=== PATIENT | female | born 1970 | race African-American/Black ===

== ENCOUNTER 2017-02-26 13:13 | Inpatient (IN) | payer MEDICARE, MEDICAID ==
[2017-02-26 14:11] LABS: ABSOLUTE BASOPHILS # (AUTO) 0.1 10^3/uL (0.0-0.2); ABSOLUTE EOSINOPHILS # (AUTO) 0.2 10^3/uL (0.0-0.6); ABSOLUTE LYMPHOCYTES (AUTO) 1.6 10^3/uL (0.5-4.7); ABSOLUTE MONOCYTES (AUTO) 0.8 10^3/uL (0.1-1.4); ABSOLUTE NEUT (AUTO) 8.6 10^3/uL (1.7-8.2); BASOPHILS % (AUTO) 0.8 % (0-2); HEMATOCRIT 25.1 % (36.0-47.0); HEMOGLOBIN 8.2 g/dL (12.0-15.5); LYMPHOCYTES % (AUTO) 14.5 % (13-45); MEAN CORPUSCULAR HEMOGLOBIN 30.1 pg (27.0-33.4); MEAN CORPUSCULAR HGB CONC 32.7 g/dL (32.0-36.0); MEAN CORPUSCULAR VOLUME 92 fl (80-97); MONOCYTES % (AUTO) 6.8 % (3-13); PLATELET COUNT 308 10^3/uL (150-450); RED BLOOD COUNT 2.73 10^6/uL (3.72-5.28); RED CELL DISTRIBUTION WIDTH 14.9 % (11.5-14.0); SEGMENTED NEUTROPHILS % (AUTO) 75.9 % (42-78); TOTAL CELLS COUNTED % (AUTO) 100 %; WHITE BLOOD COUNT 11.4 10^3/uL (4.0-10.5)
[2017-02-26 14:15] LABS: ALANINE AMINOTRANSFERASE 28 U/L (9-52); ALBUMIN 3.3 g/dL (3.5-5.0); ALKALINE PHOSPHATASE 97 U/L (38-126); ANION GAP 16 (5-19); ASPARTATE AMINO TRANSFERASE 17 U/L (14-36); BILIRUBIN,DIRECT 0.5 mg/dL (0.0-0.4); BILIRUBIN,TOTAL 0.5 mg/dL (0.2-1.3); BLOOD UREA NITROGEN 75 mg/dL (7-20); CARBON DIOXIDE 18 mmol/L (22-30); CHLORIDE 104 mmol/L (98-107); GLUCOSE 102 mg/dL (75-110); POTASSIUM 5.8 mmol/L (3.6-5.0); SODIUM 138.1 mmol/L (137-145)
[2017-02-26 14:41] LABS: CALCIUM 5.4 mg/dL (8.4-10.2)
[2017-02-26] MEDS ORDERED: CALCIUM GLUCONATE 1000 MG/10 ML INJ IV ONE ×2 (15:07→15:13)
--- NOTE | 2017-02-26 15:19 | ER Document Report ---
ED General - General Chief Complaint: General Weakness Stated Complaint: WEAKNESS Time Seen by Provider: 02/26/17 14:57 Information source: Patient, Relative - Sister who she lives with TRAVEL OUTSIDE OF THE [place] IN LAST 30 DAYS: No - HPI Notes: 46-year-old female with end-stage renal disease on peritoneal dialysis daily presents with decreased sensorium and confusion, increased somnolence the last 3 -4 days. She was seen at [place], had a negative evaluation. She has continued to worsen. She has had similar in the past when she has had a urinary tract infection. Patient wakes up for me and appears coherent enough to tell me that she is not having any discomfort. She has been having some loose stools but no vomiting. Denies any abdominal pain. She reports her peritoneal dialysis fluid has been clear though the sister states last night it seemed to be more cloudy. Denies chest pain. She has had some irregular breathing and has had some twitching but the patient has had no real significant cough. They have noted some increased periorbital edema as well. - Related Data Allergies/Adverse Reactions: Penicillins Allergy (Verified 02/26/17 13:53) Past Medical History - Social History Smoking Status: Never Smoker Frequency of alcohol use: None Drug Abuse: None Family History: Reviewed & Not Pertinent Patient has suicidal ideation: No Patient has homicidal ideation: No - Past Medical History Cardiac Medical History: Reports: Hx Hypertension Renal/ Medical History: Reports: Hx Peritoneal Dialysis - once daily Past Surgical History: Reports: Hx Abdominal Surgery - gastric bypass, Hx Orthopedic Surgery - left BKA 2003, right BKA 2004 - Immunizations Immunizations up to date: Yes Hx Diphtheria, Pertussis, Tetanus Vaccination: No Review of Systems - Review of Systems -: Yes All other systems reviewed and negative - Slightly difficult as patient is somewhat somnolent. Physical Exam - Vital signs Vitals: Pulse Ox 86 L 02/26/17 13:34 Notes: See nurse's notes - Notes Notes: GENERAL: VS as per nursing doc. chronically ill-appearing, morbidly obese, deconditioned and in no acute distress. HEAD: Atraumatic, normocephalic. EYES: Pupils equal round and reactive to light, extraocular movements intact, sclera anicteric, no conjunctival injection or discharge. Mild periorbital edema bilaterally ENT: Nares patent, oropharynx clear without exudates, moist mucous membranes. NECK: No lymphadenopathy. LUNGS: Breath sounds diminished bilaterally with basilar rales HEART: Regular rate and rhythm without murmurs. ABDOMEN: Soft, non-tender, extremely obese. EXTREMITIES: Bilateral BKA is noted NEUROLOGICAL: No obvious hyperreflexia or [place]. Moves all extremities symmetrically. She does have some slight "twitching" intermittently of her upper extremities. PSYCH: Very somnolent, smiling and pleasant, happy. Easily falls back asleep. SKIN: Warm, dry. Course - Re-evaluation Re-evalutation: 02/26/17 20:18 Patient became slightly more unresponsive had initially been responsive to verbal stimuli still was responsive to verbal stimuli but was more somnolent. ABG showed a pH of 7.18 patient will be put on a BiPAP and ABG will be redrawn. ABG was consistent with a mixed metabolic and respiratory acidosis. Unclear but with the history of the recent possible cloudy fluid last night, even though the patient did not have obvious abdominal pain, infection and be a consideration. I spoke with Dr. Braga and he is told me to use 2.5 L of 2.5% dialysate. As well give 2 g of vancomycin and 150 mg and gentamicin as coverage until we get the fluid culture and Gram stain results. 02/26/17 20:[address] Galeas and she will admit the patient. - Vital Signs Vital signs: Temp Pulse Resp BP Pulse Ox 11 L 142/68 H 99 02/26/17 19:00 02/26/17 18:01 02/26/17 19:00 - Laboratory Result Diagrams: 02/26/17 13:35 02/26/17 13:35 Laboratory results interpreted by me: 02/26/17 02/26/17 02/26/17 13:35 13:35 13:35 WBC 11.4 H RBC 2.73 L Hgb 8.2 L Hct 25.1 L RDW 14.9 H Absolute Neutrophils 8.6 H Carbonic Acid ABG pH ABG pCO2 ABG HCO3 ABG Total CO2 Potassium 5.8 H Carbon Dioxide 18 L BUN 75 H Creatinine 16.75 H Est GFR ( Amer) 3 L Est GFR (Non-Af Amer) 2 L Calcium 5.4 L* Ionized Calcium Oksana Phosphorus 10.4 H Direct Bilirubin 0.5 H Albumin 3.3 L Urine Protein Urine Glucose (UA) Urine Blood 02/26/17 02/26/17 02/26/17 15:55 18:00 18:56 WBC RBC Hgb Hct RDW Absolute Neutrophils Carbonic Acid 1.54 H ABG pH 7.18 L* ABG pCO2 51.3 H ABG HCO3 18.7 L ABG Total CO2 20.3 L Potassium Carbon Dioxide BUN Creatinine Est GFR ( Amer) Est GFR (Non-Af Amer) Calcium Ionized Calcium Oksana 0.81 L Phosphorus Direct Bilirubin Albumin Urine Protein 100 H Urine Glucose (UA) 50 H Urine Blood MODERATE H - Diagnostic Test Radiology reviewed: Image reviewed - Cardiomegaly, no acute obvious pulmonary edema - EKG Interpretation by Nm EKG shows normal: Sinus rhythm - Rate 95, left anterior fascicular block, slight peaking of the T waves, nonspecific ST abnormalities - Consults Dr. Galeas Time consulted: 20:30 Consulted provider: will come to ER Critical Care Note - Critical Care Note Total time excluding time spent on procedures (mins): 40 Discharge - Discharge Clinical Impression: Acute respiratory failure, Hypocalcemia Condition: Critical Disposition: ADMITTED INPATIENT Admitting Provider: Dr. Galeas Unit Admitted: ICU Referrals: ALEM UGARTE DO [Primary Care Provider] - Follow up as needed
[2017-02-26 15:38] LABS: PHOSPHORUS 10.4 mg/dL (2.5-4.5)
--- NOTE | 2017-02-26 15:52 | RADIOLOGY REPORT (SQ) ---
EXAM DESCRIPTION: CHEST SINGLE VIEW COMPLETED DATE/TIME: 02/26/2017 3:39 pm REASON FOR STUDY: AMS/Cough COMPARISON: 10/20/2007 NUMBER OF VIEWS: One view. TECHNIQUE: Single frontal radiographic view of the chest acquired. LIMITATIONS: None. FINDINGS: LUNGS AND PLEURA: No opacities, masses or pneumothorax. No pleural effusion. MEDIASTINUM AND HILAR STRUCTURES: No masses. Contour normal. HEART AND VASCULAR STRUCTURES: Heart enlarged without failure. Normal vasculature. BONES: No acute findings. HARDWARE: None in the chest. OTHER: No other significant finding. IMPRESSION: HEART ENLARGED WITHOUT FAILURE. NO OTHER SIGNIFICANT RADIOGRAPHIC FINDING IN THE CHEST. TECHNICAL DOCUMENTATION: JOB ID: [id number] [employer]- All Rights Reserved
[2017-02-26 16:37] LABS: AMORPHOUS SEDIMENT,URINE TRACE /HPF; APPEARANCE,URINE SLIGHTLY-CLOUDY; BILIRUBIN,URINE NEGATIVE (NEGATIVE); COLOR,URINE YELLOW; GLUCOSE, URINE 50 mg/dL (NEGATIVE); KETONES,URINE NEGATIVE (NEGATIVE); LEUKOCYTE ESTERASE,URINE NEGATIVE (NEGATIVE); NITRITE,URINE NEGATIVE (NEGATIVE); PROTEIN,URINE 100 mg/dL (NEGATIVE); URINE SPECIFIC GRAVITY 1.013; UROBILINOGEN,URINE NEGATIVE mg/dL (<2.0)
[2017-02-26 19:21] LABS: ARTERIAL BLOOD H2CO3 1.54 mmol/L (1.05-1.35); ARTERIAL BLOOD HCO3 18.7 mmol/L (20-26); ARTERIAL BLOOD O2 SATURATION 95.1 % (94-98); ARTERIAL BLOOD PCO2 51.3 mmHg (35-45); ARTERIAL BLOOD PO2 93.5 mmHg (80-100); ARTERIAL BLOOD TOTAL CO2 20.3 mmol/L (21-25)
[2017-02-26 19:30] LABS: ARTERIAL BLOOD FIO2 3L
[2017-02-26 19:35] LABS: ARTERIAL BLOOD PH 7.18 (7.35-7.45)
[2017-02-26] MEDS ORDERED: VANCOMYCIN HCL INJ 1000 MG VIAL IV ONE (20:15)
[2017-02-26] MEDS ORDERED: GENTAMICIN SULFATE INJ 80 MG/2 ML VIAL IV ONE (20:15)
[2017-02-26] MEDS ORDERED: ACETAMINOPHEN 325 MG TABLET PO PRN (20:48)
[2017-02-26] MEDS ORDERED: PROMETHAZINE HCL 25 MG TABLET PO PRN (20:48)
[2017-02-26 21:38] LABS: ARTERIAL BLOOD BASE EXCESS -8.9 mmol/L; ARTERIAL BLOOD H2CO3 1.53 mmol/L (1.05-1.35); ARTERIAL BLOOD HCO3 18.9 mmol/L (20-26); ARTERIAL BLOOD O2 SATURATION 77.9 % (94-98); ARTERIAL BLOOD PCO2 50.8 mmHg (35-45); ARTERIAL BLOOD PO2 51.9 mmHg (80-100); ARTERIAL BLOOD TOTAL CO2 20.5 mmol/L (21-25)
[2017-02-26 21:41] LABS: ARTERIAL BLOOD FIO2 50%
[2017-02-26 21:44] LABS: ARTERIAL BLOOD PH 7.19 (7.35-7.45)
[2017-02-26 21:51] LABS: FLUID APPEARANCE SLIGHTLY HAZY; FLUID COLOR YELLOW; FLUID TYPE PERITONEAL; FLUID VISCOSITY LIQUID
[2017-02-26] MEDS ORDERED: CARVEDILOL 12.5 MG TABLET PO SCH (22:00)
[2017-02-26 22:10] LABS: FLUID SOURCE ABDOMEN
[2017-02-26] MEDS: HEPARIN SOD (PORCINE) 5,000 UNIT/ML 1 ML SYRINGE SUBCUT SCH (22:32)
--- NOTE | 2017-02-26 22:50 | EKG REPORT ---
SEVERITY:- ABNORMAL ECG - SINUS RHYTHM LEFT ANTERIOR FASCICULAR BLOCK LOW VOLTAGE IN FRONTAL LEADS BORDERLINE R WAVE PROGRESSION, ANTERIOR LEADS, CANNOT R/O ANTERIOR DE OLD : Confirmed by: Kamini Barnard 26-Feb-2017 22:49:51
[2017-02-26 23:48] LABS: ARTERIAL BLOOD BASE EXCESS -10.2 mmol/L; ARTERIAL BLOOD H2CO3 1.48 mmol/L (1.05-1.35); ARTERIAL BLOOD HCO3 17.9 mmol/L (20-26); ARTERIAL BLOOD O2 SATURATION 99.2 % (94-98); ARTERIAL BLOOD PCO2 49.1 mmHg (35-45); ARTERIAL BLOOD PO2 221.9 mmHg (80-100); ARTERIAL BLOOD TOTAL CO2 19.4 mmol/L (21-25)
[2017-02-26 23:49] LABS: ARTERIAL BLOOD FIO2 50%; ARTERIAL BLOOD PH 7.18 (7.35-7.45)
[2017-02-27] MEDS ORDERED: SODIUM BICARBONATE 8.4% INJ 50 MEQ/50 ML DISP.SYRIN IV ONE (00:17)
--- NOTE | 2017-02-27 01:21 | PDOC H&P ---
History of Present Illness Admission Date/PCP: 02/26/17 20:42 ALEM UGARTE DO History of Present Illness: NAA WALKER is a 46 year old female with past medical history of end-stage renal disease, hypertension, diabetes mellitus, peripheral vascular disease who presented to the emergency department with complaints of weakness. History is primarily obtained from her sister who is at bedside as patient is quite lethargic. She reports that she took her sister to [place] emergency department on Saturday for increased sleepiness and weakness, but they were unable to find anything wrong with her. She reports that she has been increasingly somnolent over the last 3 or 4 days. She does report that she saw her primary care physician earlier this week but is unsure if any of her medications have changed. She does report that she has had some loose stools this week and was unable to get to the bathroom in time. Sister reports that her peritoneal dialysis fluid has been cloudy and the patient was noted to have a fever by EMS of approximately 99F. She also reports that there are plans to transition her sister from peritoneal dialysis to hemodialysis. She reports that in the 6 months that she has been on peritoneal dialysis, that she has had increased edema. Patient is referred to the hospitalist service for find respiratory and metabolic acidosis and acute encephalopathy with concerns for bacterial peritonitis. Past Medical History Cardiac Medical History: Reports: Hypertension Endocrine Medical History: Reports: Diabetes Mellitus Type 2, Obesity Renal/ Medical History: Reports: End Stage Renal Disease Past Surgical History Past Surgical History: Reports: Amputation - Bilateral BKA, Gastric Bypass Surgery, Orthopedic Surgery - left BKA 2003, right BKA 2004, Other - abdominoplasty Social History Smoking Status: Never Smoker Frequency of Alcohol Use: None Hx Recreational Drug Use: No Hx Prescription Drug Abuse: No - Advance Directive Resuscitation Status: Full Code Surrogate healthcare decision maker:: Jenniffer Nattyerin, sister Family History Family History: DM, Hypertension Parental Family History Reviewed: Yes Children Family History Reviewed: NA Sibling(s) Family History Reviewed.: Yes Medication/Allergy Allergies/Adverse Reactions: Penicillins Allergy (Verified 02/26/17 13:53) Review of Systems ROS unobtainable: Due to mental status Constitutional: PRESENT: as per HPI Cardiovascular: PRESENT: as per HPI Gastrointestinal: PRESENT: as per HPI Physical Exam Vital Signs: Temp Pulse Resp BP Pulse Ox 16 178/81 H 100 02/27/17 00:00 02/26/17 23:01 02/27/17 00:50 Intake & Output 02/25/17 02/26/17 02/27/17 06:59 06:59 06:59 Intake Total 5000 Balance 5000 Weight 221.849 kg General appearance: PRESENT: no acute distress, morbidly obese, well-developed, well-nourished Head exam: PRESENT: atraumatic, normocephalic Eye exam: PRESENT: conjunctiva pink, EOMI, periorbital swelling, PERRLA. ABSENT : conjunctival injection, scleral icterus Ear exam: PRESENT: normal external ear exam Mouth exam: PRESENT: moist, tongue midline Neck exam: PRESENT: JVD. ABSENT: carotid bruit, lymphadenopathy, thyromegaly, tracheal deviation Respiratory exam: PRESENT: rales, unlabored. ABSENT: accessory muscle use, rhonchi, tachypnea, wheezes Cardiovascular exam: PRESENT: RRR, +S1, +S2, systolic murmur. ABSENT: diastolic murmur, rubs Pulses: PRESENT: normal dorsalis pedis pul Vascular exam: PRESENT: normal capillary refill GI/Abdominal exam: PRESENT: normal bowel sounds, soft. ABSENT: distended, firm , guarding, mass, Jimenez's sign, organolmegaly, rebound, rigid, tenderness Rectal exam: PRESENT: deferred Extremities exam: PRESENT: full ROM, +2 edema - Stump edema. ABSENT: clubbing Neurological exam: PRESENT: altered - Lethargic but appropriate when aroused, oriented to person, oriented to place, oriented to time, oriented to situation, CN II-XII grossly intact. ABSENT: motor sensory deficit Psychiatric exam: PRESENT: flat affect. ABSENT: homicidal ideation, suicidal ideation Skin exam: PRESENT: dry, intact, warm. ABSENT: cyanosis, rash Results Laboratory Results: 02/26/17 02/26/17 02/26/17 21:15 21:31 22:35 Carbonic Acid 1.53 H 1.48 H HCO3/H2CO3 Ratio 12:1 12:1 ABG pH 7.19 L* 7.18 L* ABG pCO2 50.8 H 49.1 H ABG pO2 51.9 L 221.9 H ABG HCO3 18.9 L 17.9 L ABG O2 Saturation 77.9 L 99.2 H ABG Base Excess -8.9 -10.2 FiO2 50% 50% Fluid Type PERITONEAL Fluid Source ABDOMEN Fluid Color YELLOW Fluid Appearance SLIGHTLY HAZY Fluid Viscosity LIQUID Fluid WBC 24 Fluid RBC 24 02/26/17 02/26/17 02/26/17 13:35 13:35 13:35 WBC 11.4 H Hgb 8.2 L Hct 25.1 L Sodium 138.1 Potassium 5.8 H Chloride 104 Carbon Dioxide 18 L Anion Gap 16 BUN 75 H Creatinine 16.75 H Glucose 102 Calcium 5.4 L* Ionized Calcium Oksana Phosphorus 10.4 H Magnesium 2.0 Total Bilirubin 0.5 Direct Bilirubin 0.5 H AST 17 ALT 28 Alkaline Phosphatase 97 Total Protein 7.0 Albumin 3.3 L TSH Urine Blood Urine WBC (Auto) Urine RBC (Auto) Urine Bacteria (Auto) Amorphous Sediment Auto Fluid WBC Fluid RBC Fluid Seg Neutrophils 02/26/17 02/26/17 02/26/17 13:35 15:55 18:00 WBC Hgb Hct Sodium Potassium Chloride Carbon Dioxide Anion Gap BUN Creatinine Glucose Calcium Ionized Calcium Oksana 0.81 L Phosphorus Magnesium Total Bilirubin Direct Bilirubin AST ALT Alkaline Phosphatase Total Protein Albumin TSH 1.02 Urine Blood MODERATE H Urine WBC (Auto) 4 Urine RBC (Auto) 18 Urine Bacteria (Auto) TRACE Amorphous Sediment Auto TRACE Fluid WBC Fluid RBC Fluid Seg Neutrophils 02/26/17 21:15 WBC Hgb Hct Sodium Potassium Chloride Carbon Dioxide Anion Gap BUN Creatinine Glucose Calcium Ionized Calcium Oksana Phosphorus Magnesium Total Bilirubin Direct Bilirubin AST ALT Alkaline Phosphatase Total Protein Albumin TSH Urine Blood Urine WBC (Auto) Urine RBC (Auto) Urine Bacteria (Auto) Amorphous Sediment Auto Fluid WBC 24 Fluid RBC 24 Fluid Seg Neutrophils 15 Impressions: Chest X-Ray 02/26/17 15:08 IMPRESSION: HEART ENLARGED WITHOUT FAILURE. NO OTHER SIGNIFICANT RADIOGRAPHIC FINDING IN THE CHEST. Status: Imported from PACS Assessment & Plan - Diagnosis (1) Peritonitis due to infected peritoneal dialysis catheter Qualifiers: Encounter type: initial encounter Qualified Code(s): T85.71XA - Infection and inflammatory reaction due to peritoneal dialysis catheter, initial encounter ; K65.9 - Peritonitis, unspecified; K65.9 - Peritonitis, unspecified; K65.9 - Peritonitis, unspecified Is this a current diagnosis for this admission?: Yes Plan: Concern for infected peritoneal dialysis catheter. Sister reports that she was given an antibiotic to put in her dialysis catheter. Patient's fluid appears cloudy, and has been given gentamicin and vancomycin per the instruction of nephrology. Will add cefepime to this for gram-negative coverage. Concern is also given for possible other occult infection including UTI. Defer further dosing of vancomycin and gentamicin to the nephrology team. (2) End stage renal disease on dialysis Is this a current diagnosis for this admission?: Yes Plan: Apparently, patient is in the process of being transitioned from PD to HD. Patient has a functional left upper extremity fistula with palpable thrill and bruit. Patient will likely need hemodialysis for correction of her high anion gap metabolic acidosis. (3) High anion gap metabolic acidosis Is this a current diagnosis for this admission?: Yes Plan: Patient likely has a high anion gap metabolic acidosis due to her underlying uremia. Believe patient likely needs hemodialysis.. Will give sodium bicarbonate and monitor patient for tetany and transient worsening of her hypocalcemia. Continue to monitor patient on telemetry for arrhythmia. (4) Respiratory acidosis Is this a current diagnosis for this admission?: Yes Plan: Patient likely has an ongoing acute respiratory acidosis due to her underlying obesity hypoventilation syndrome. We will continue to follow this. (5) Diarrhea Qualifiers: Diarrhea type: unspecified type Qualified Code(s): R19.7 - Diarrhea, unspecified Is this a current diagnosis for this admission?: Yes Plan: Will check stool for occult blood, C. difficile, fecal leukocytes, and culture. She is yet to have a stool here (6) Hyperkalemia Is this a current diagnosis for this admission?: Yes Plan: We will recheck and monitor for arrhythmia (7) Anemia in chronic kidney disease, on chronic dialysis Is this a current diagnosis for this admission?: Yes Plan: Defer to nephrology for Epogen (8) Acute respiratory failure Qualifiers: Respiratory failure complication: hypoxia and hypercapnia Qualified Code(s) : J96.01 - Acute respiratory failure with hypoxia; J96.02 - Acute respiratory failure with hypercapnia; J96.02 - Acute respiratory failure with hypercapnia; J96.02 - Acute respiratory failure with hypercapnia Is this a current diagnosis for this admission?: Yes Plan: Element of both hypercapnic and hypoxic respiratory failure secondary to underlying obesity hypoventilation, and volume overload. (9) Hypocalcemia Is this a current diagnosis for this admission?: Yes Plan: Has been given 2 g of IV calcium. Place on Tums and repeat. Likely secondary to secondary hyperparathyroidism due to her underlying renal disease (10) Acute metabolic encephalopathy Is this a current diagnosis for this admission?: Yes Plan: Likely secondary to underlying uremia and possibly also infection. Supportive care (11) Morbid obesity with BMI of 50.0-59.9, adult Is this a current diagnosis for this admission?: Yes Plan: No current height is listed and patient is 221 kg suspecting her BMI is likely higher than this. (12) History of gastric bypass Is this a current diagnosis for this admission?: Yes (13) Obesity hypoventilation syndrome Is this a current diagnosis for this admission?: Yes Plan: Have placed patient on BiPAP at 22/6 - Time Time Spent: Greater than 70 Minutes Medications reviewed and adjusted accordingly: Yes - Inpatient Certification Based on my medical assessment, after consideration of the patient's comorbidities, presenting symptoms, or acuity I expect that the services needed warrant INPATIENT care.: Yes I certify that my determination is in accordance with my understanding of Medicare's requirements for reasonable and necessary INPATIENT services [42 CFR 412.3e].: Yes Medical Necessity: Need For Continuous Telemetry Monitoring, Risk of Complication if Not Cared For in Hospital, Risk of Diagnosis Which Will Require Inpatient Eval/Care/Monitoring Post Hospital Care: D/C Machine Buffer Documentation
[2017-02-27] MEDS ORDERED: PHARMACY COMMUNICATION ORDER MC NR ×2 (01:30→15:15)
[2017-02-27 03:30] LABS: ARTERIAL BLOOD BASE EXCESS -7.5 mmol/L; ARTERIAL BLOOD H2CO3 1.52 mmol/L (1.05-1.35); ARTERIAL BLOOD O2 SATURATION 98.2 % (94-98); ARTERIAL BLOOD PCO2 50.4 mmHg (35-45); ARTERIAL BLOOD PH 7.22 (7.35-7.45); ARTERIAL BLOOD PO2 139.5 mmHg (80-100); ARTERIAL BLOOD TOTAL CO2 21.6 mmol/L (21-25)
[2017-02-27 03:31] LABS: ARTERIAL BLOOD FIO2 35%
[2017-02-27 05:01] LABS: ABSOLUTE BASOPHILS # (AUTO) 0.1 10^3/uL (0.0-0.2); ABSOLUTE EOSINOPHILS # (AUTO) 0.2 10^3/uL (0.0-0.6); ABSOLUTE MONOCYTES (AUTO) 0.8 10^3/uL (0.1-1.4); ABSOLUTE NEUT (AUTO) 6.8 10^3/uL (1.7-8.2); BASOPHILS % (AUTO) 0.7 % (0-2); HEMATOCRIT 23.6 % (36.0-47.0); LYMPHOCYTES % (AUTO) 11.7 % (13-45); MEAN CORPUSCULAR HEMOGLOBIN 29.7 pg (27.0-33.4); MEAN CORPUSCULAR HGB CONC 32.3 g/dL (32.0-36.0); MEAN CORPUSCULAR VOLUME 92 fl (80-97); MONOCYTES % (AUTO) 9.2 % (3-13); PLATELET COUNT 252 10^3/uL (150-450); RED BLOOD COUNT 2.56 10^6/uL (3.72-5.28); RED CELL DISTRIBUTION WIDTH 14.3 % (11.5-14.0); SEGMENTED NEUTROPHILS % (AUTO) 76.4 % (42-78); TOTAL CELLS COUNTED % (AUTO) 100 %; WHITE BLOOD COUNT 8.9 10^3/uL (4.0-10.5)
[2017-02-27 05:05] LABS: HEMOGLOBIN 7.6 g/dL (12.0-15.5)
[2017-02-27 05:29] LABS: ALANINE AMINOTRANSFERASE 29 U/L (9-52); ALBUMIN 2.8 g/dL (3.5-5.0); ALKALINE PHOSPHATASE 91 U/L (38-126); ANION GAP 17 (5-19); ASPARTATE AMINO TRANSFERASE 12 U/L (14-36); BILIRUBIN,DIRECT 0.3 mg/dL (0.0-0.4); BILIRUBIN,TOTAL 0.4 mg/dL (0.2-1.3); BLOOD UREA NITROGEN 72 mg/dL (7-20); CARBON DIOXIDE 18 mmol/L (22-30); CHLORIDE 105 mmol/L (98-107); GLUCOSE 108 mg/dL (75-110); PHOSPHORUS 10.7 mg/dL (2.5-4.5); POTASSIUM 5.8 mmol/L (3.6-5.0); SODIUM 139.9 mmol/L (137-145); TOTAL PROTEIN 5.8 g/dL (6.3-8.2)
[2017-02-27 05:53] LABS: CALCIUM 5.8 mg/dL (8.4-10.2)
[2017-02-27] MEDS ORDERED: CALCIUM GLUCONATE 1000 MG/10 ML INJ IV ONE ×2 (06:00→15:30)
[2017-02-27] MEDS ORDERED: CALCIUM GLUCONATE 1000 MG/10 ML INJ IV PRN (06:22)
[2017-02-27] MEDS ORDERED: CALCIUM GLUCONATE 2,000 MG in DEXTROSE 5%-WATER 100 ML IV ONE (06:30)
[2017-02-27] MEDS: HEPARIN SOD (PORCINE) 5,000 UNIT/ML 1 ML SYRINGE SUBCUT SCH (06:44)
[2017-02-27 07:15] LABS: ARTERIAL BLOOD BASE EXCESS -8.4 mmol/L; ARTERIAL BLOOD H2CO3 1.63 mmol/L (1.05-1.35); ARTERIAL BLOOD HCO3 19.9 mmol/L (20-26); ARTERIAL BLOOD PCO2 54.3 mmHg (35-45); ARTERIAL BLOOD PO2 77.7 mmHg (80-100); ARTERIAL BLOOD TOTAL CO2 21.6 mmol/L (21-25)
[2017-02-27 07:16] LABS: ARTERIAL BLOOD FIO2 24%
[2017-02-27 07:18] LABS: ARTERIAL BLOOD PH 7.18 (7.35-7.45)
[2017-02-27] MEDS ORDERED: SUCCINYLCHOLINE CHLORIDE INJ 200 MG/10 ML VIAL ONE (07:57)
[2017-02-27] MEDS ORDERED: CEFEPIME 1 GM/D5W RTU 1 GM/50 ML RTUPB IV SCH (10:00)
[2017-02-27] MEDS ORDERED: AMLODIPINE BESYLATE 10 MG TABLET PO SCH (10:00)
--- NOTE | 2017-02-27 11:15 | PDOC CONSULTATION ---
Consultation Consult Date: 02/27/17 Consult reason:: ESRD on peritoneal dialysis History of Present Illness Admission Date/PCP: 02/26/17 20:42 ALEM UGARTE DO History of Present Illness: NAA WALKER is a 46 year old morbidly obese female with past medical history of end-stage renal disease on peritoneal dialysis, hypertension, diabetes mellitus, peripheral vascular disease who presented to the emergency department with complaints of weakness. The patient is quite lethargic and unable to contribute to a proper history. Besides that she is also on BiPAP. Therefore chart review was done and discussions were done with the treating nurse. She was initially taken to to [place] emergency department on Saturday for increased sleepiness and weakness, but they were unable to find anything wrong with her. Apparently she had been increasingly somnolent over the last 3 or [address] Galeas states that she saw her primary care physician earlier this week but is unsure if any of her medications have changed. There is a history that she has had some loose stools this week and was unable to get to the bathroom in time. Sister reports that her peritoneal dialysis fluid has been cloudy and the patient was noted to have a fever by EMS of approximately 99 F. She also reports that there are plans to transition her sister from peritoneal dialysis to hemodialysis. She reports that in the 6 months that she has been on peritoneal dialysis, that she has had increased edema. Evaluations in the ER and discussions done with the ER physician yesterday and the fluid was sent for rapid studies and have come back showing no features indicative of bacterial peritonitis. Has had couple of rapid exchanges and she is now on q. 4 hour exchanges to treat her electrolyte abnormalities. Patient when seen this morning was quite lethargic and unable to contribute any to the history. Past Medical History Cardiac Medical History: Reports: Hypertension-primary Endocrine Medical History: Reports: Diabetes Mellitus Type 2, Obesity Renal/ Medical History: Reports: End Stage Renal Disease, Secondary Hyperparathyroidism Hematology Medical History: Reports Anemia of Chronic Kidney Disease Past Surgical History Past Surgical History: Reports: Gastric Bypass Surgery, Orthopedic Surgery - left BKA 2003, right BKA 2004, Other - abdominoplasty Social History Smoking Status: Never Smoker Frequency of Alcohol Use: None Hx Recreational Drug Use: No Hx Prescription Drug Abuse: No - Advance Directive Resuscitation Status: Full Code Family History Parental Family History Reviewed: No Children Family History Reviewed: No Sibling(s) Family History Reviewed.: No Medication/Allergy Allergies/Adverse Reactions: Penicillins Allergy (Verified 02/26/17 13:53) Review of Systems ROS unobtainable: Due to mental status - Chart review was done and discussions were done with the treating nurse. Physical Exam Vital Signs: Temp Pulse Resp BP Pulse Ox 98.2 F 71 17 156/73 H 96 02/27/17 07:41 02/27/17 09:15 02/27/17 09:50 02/27/17 09:15 02/27/17 07:41 Intake & Output 02/26/17 02/27/17 02/28/17 06:59 06:59 06:59 Intake Total 7500 2500 Output Total 1300 Balance 6200 2500 Weight 220.7 kg 220.7 kg General appearance: PRESENT: mild distress, morbidly obese - On BiPAP and lethargic. Eye exam: PRESENT: EOMI, PERRLA Mouth exam: PRESENT: neck supple Neck exam: ABSENT: lymphadenopathy, meningismus, tenderness, thyromegaly, tracheal deviation Respiratory exam: PRESENT: clear to auscultation senthil, crackles - Scattered., symmetrical. ABSENT: rhonchi Cardiovascular exam: PRESENT: +S1, +S2 GI/Abdominal exam: PRESENT: normal bowel sounds, soft, tenderness. ABSENT: ascites - Quite pendulous, organomegaly Extremities exam: PRESENT: +1 edema Neurological exam: PRESENT: altered Skin exam: ABSENT: dry, rash - Tinea cruris in the groin region Results Laboratory Results: 02/27/17 04:46 02/27/17 04:46 02/26/17 02/26/17 02/26/17 21:15 21:31 22:35 WBC RBC Hgb Hct MCV MCH MCHC RDW Plt Count Seg Neutrophils % Lymphocytes % Monocytes % Eosinophils % Basophils % Absolute Neutrophils Absolute Lymphocytes Absolute Monocytes Absolute Eosinophils Absolute Basophils Carbonic Acid 1.53 H 1.48 H HCO3/H2CO3 Ratio 12:1 12:1 ABG pH 7.19 L* 7.18 L* ABG pCO2 50.8 H 49.1 H ABG pO2 51.9 L 221.9 H ABG HCO3 18.9 L 17.9 L ABG O2 Saturation 77.9 L 99.2 H ABG Base Excess -8.9 -10.2 FiO2 50% 50% Sodium Potassium Chloride Carbon Dioxide Anion Gap BUN Creatinine Est GFR ( Amer) Est GFR (Non-Af Amer) Glucose Calcium Ionized Calcium [place] Phosphorus Magnesium Total Bilirubin AST ALT Alkaline Phosphatase Total Protein Albumin Fluid Type PERITONEAL Fluid Source ABDOMEN Fluid Color YELLOW Fluid Appearance SLIGHTLY HAZY Fluid Viscosity LIQUID Fluid WBC 24 Fluid RBC 24 Blood Type Antibody Screen 02/27/17 02/27/17 02/27/17 03:22 04:46 04:46 WBC 8.9 RBC 2.56 L Hgb 7.6 L Hct 23.6 L MCV 92 MCH 29.7 MCHC 32.3 RDW 14.3 H Plt Count 252 Seg Neutrophils % 76.4 Lymphocytes % 11.7 L Monocytes % 9.2 Eosinophils % 2.0 Basophils % 0.7 Absolute Neutrophils 6.8 Absolute Lymphocytes 1.0 Absolute Monocytes 0.8 Absolute Eosinophils 0.2 Absolute Basophils 0.1 Carbonic Acid 1.52 H HCO3/H2CO3 Ratio 13:1 ABG pH 7.22 L ABG pCO2 50.4 H ABG pO2 139.5 H ABG HCO3 20.0 ABG O2 Saturation 98.2 H ABG Base Excess -7.5 FiO2 35% Sodium 139.9 Potassium 5.8 H Chloride 105 Carbon Dioxide 18 L Anion Gap 17 BUN 72 H Creatinine 17.21 H Est GFR ( Amer) 3 L Est GFR (Non-Af Amer) 2 L Glucose 108 Calcium 5.8 L* Ionized Calcium Oks[place] Phosphorus 10.7 H Magnesium 2.0 Total Bilirubin 0.4 AST 12 L ALT 29 Alkaline Phosphatase 91 Total Protein 5.8 L Albumin 2.8 L Fluid Type Fluid Source Fluid Color Fluid Appearance Fluid Viscosity Fluid WBC Fluid RBC Blood Type Antibody Screen 02/27/17 02/27/17 02/27/17 05:41 06:41 06:47 WBC RBC Hgb Hct MCV MCH MCHC RDW Plt Count Seg Neutrophils % Lymphocytes % Monocytes % Eosinophils % Basophils % Absolute Neutrophils Absolute Lymphocytes Absolute Monocytes Absolute Eosinophils Absolute Basophils Carbonic Acid 1.63 H HCO3/H2CO3 Ratio 12:1 ABG pH 7.18 L* ABG pCO2 54.3 H ABG pO2 77.7 L ABG HCO3 19.9 L ABG O2 Saturation 92.0 L ABG Base Excess -8.4 FiO2 24% Sodium Potassium Chloride Carbon Dioxide Anion Gap BUN Creatinine Est GFR ( Amer) Est GFR (Non-Af Amer) Glucose Calcium Ionized Calcium Oksana 0.81 L Phosphorus Magnesium Total Bilirubin AST ALT Alkaline Phosphatase Total Protein Albumin Fluid Type Fluid Source Fluid Color Fluid Appearance Fluid Viscosity Fluid WBC Fluid RBC Blood Type B POSITIVE Antibody Screen NEGATIVE Impressions: Chest X-Ray 02/26/17 15:08 IMPRESSION: HEART ENLARGED WITHOUT FAILURE. NO OTHER SIGNIFICANT RADIOGRAPHIC FINDING IN THE CHEST. Assessment & Plan - Diagnosis (1) Acute metabolic encephalopathy Is this a current diagnosis for this admission?: Yes Plan: Patient has respiratory and metabolic acidosis from obesity induced chronic hypoventilation/ESRD and possible poor compliance with peritoneal dialysis respectively. Patient currently on BiPAP which hopefully might improve her respiratory status. Will do vigorous peritoneal dialysis and see if she would correct her electrolyte abnormalities. If that does not work then we will convert her to hemodialysis. (2) Acute respiratory failure Qualifiers: Respiratory failure complication: hypoxia and hypercapnia Qualified Code(s) : J96.01 - Acute respiratory failure with hypoxia; J96.02 - Acute respiratory failure with hypercapnia; J96.02 - Acute respiratory failure with hypercapnia; J96.02 - Acute respiratory failure with hypercapnia Is this a current diagnosis for this admission?: Yes Plan: As outlined earlier. See if she responds to measures outlined earlier. Need to rule out other causes of metabolic encephalopathy. Also ordered ammonia levels. No signs of infection but cultures are pending. (3) Anemia in chronic kidney disease, on chronic dialysis Is this a current diagnosis for this admission?: Yes Plan: Get iron studies and based on that will latest start on erythropoietin (4) Diarrhea Qualifiers: Diarrhea type: unspecified type Qualified Code(s): R19.7 - Diarrhea, unspecified Is this a current diagnosis for this admission?: Yes Plan: As per hospitalist (5) End stage renal disease on dialysis Is this a current diagnosis for this admission?: Yes Plan: Patient has been given peritoneal dialysis exchanges 3 since admission early this morning. Orders were discussed with the treating nurse. No evidences to indicate bacterial peritonitis which is a relief. Monitor electrolytes and see if she needs to be converted to hemodialysis through a catheter. (6) History of gastric bypass Is this a current diagnosis for this admission?: Yes Plan: Be a cause for multiple elemental deficiencies. Would check B12 levels. (7) Hyperkalemia Is this a current diagnosis for this admission?: Yes Plan: See response to rapid peritoneal dialysis and see if needs to be converted to hemodialysis later on tomorrow. (8) Hypocalcemia Is this a current diagnosis for this admission?: Yes Plan: Combination of factors including secondary hyperparathyroidism and high phosphorus. Check appropriate labs. (9) Morbid obesity with BMI of 50.0-59.9, adult Is this a current diagnosis for this admission?: Yes (10) Renal osteodystrophy Plan: Start binders when she is taking her meals.
[2017-02-27 11:59] LABS: ANION GAP 18 (5-19); BLOOD UREA NITROGEN 72 mg/dL (7-20); CARBON DIOXIDE 18 mmol/L (22-30); CHLORIDE 103 mmol/L (98-107); GLUCOSE 110 mg/dL (75-110); POTASSIUM 5.8 mmol/L (3.6-5.0); SODIUM 138.6 mmol/L (137-145)
[2017-02-27 12:25] LABS: CALCIUM 6.4 mg/dL (8.4-10.2)
[2017-02-27 12:54] LABS: ALBUMIN 3.3 g/dL (3.5-5.0)
--- NOTE | 2017-02-27 13:54 | Physician Advisory Note ---
Physician Advisor ProgressNote .: Pursuant to the plan for [facility], I have reviewed the medical record for this patient. Physician Advisor Statement: Very nice documentation of obesity, ESRD on HD, Ac resp acidosis, ACKD, peritonitis. In support of dx of Acute Hypercapneic & Hypoxemic Resp Fallure: pt confused/ somnolent w/GCS total 14, bradypnea, ABG results as noted, needing Bipap. CK
--- NOTE | 2017-02-27 13:54 | PROGRESS NOTE E ---
Progress Note NAME: NAA WALKER : 1970 AGE: 46Y DATE: 02/27/2017 ROOM: 318 CRITICAL CARE VISIT: SUBJECTIVE: The patient is lying in bed. According to nursing staff, the patient is more awake and alert than she was. The patient is able to recall going to [place] to the ER over the weekend and so forth, therefore, it does appear her mentation has improved. I am concerned regarding the patient's last PCO2 of 53, 54. I am also concerned for the patient's overall acidosis that is persistently remaining at 7.18. The patient's, however, metabolic panel is only 18. The patient has been afebrile. Her blood pressures have been in a good range and the patient does complain of some back pain but no other concerns are voiced at this time. REVIEW OF SYSTEMS: Rest of review of systems is negative. MEDICATIONS: Medications have been reviewed. OBJECTIVE: GENERAL: The patient is a 46-year-old female who will awaken. She does not appear to be in acute distress. VITAL SIGNS: As follows. Temperature is 98.2, pulse 71, respirations 18. Blood pressure is 156/71. Oxygen saturation is 96% on 35% FIO2 on BiPAP. SKIN: Warm and dry. No rashes. Not diaphoretic. HEENT: Pupils are reactive. She does have some periorbital edema. NECK: The patient does have JVP to the right clavicle. CARDIOVASCULAR: Heart is regular; there is no murmur or rub. CHEST: Diminished. Unable to fully auscultate lung sounds due to body habitus, but currently symmetrical, unlabored. ABDOMEN: Obese. Soft. There does not appear to be any area of focal tenderness. EXTREMITIES: The patient has a bilateral AKA. PSYCHIATRIC: The patient does appear groggy. DIAGNOSTICS: Lab values are as follows: Hematology obtained on 02/27/2017: WBC 8.9, hemoglobin 5.6, hematocrit is 23.6. Platelet count is 232,000. Chemistry obtained on 02/27/2017 at 11:22. Sodium is 138, potassium 5.8, chloride is 103, carbon dioxide 18, BUN 72, creatinine 16.88. Glucose 110, calcium is 6.4, ammonia 12.5. Blood gas obtained on 02/27/2017: A pH of 7.18, PCO2 is 54.3, PO2 is 77.7, bicarb is 19.9. IMPRESSION AND PLAN: 1. ACUTE ENCEPHALOPATHY, UNCERTAIN OF THE EXACT ETIOLOGY OF THIS; COULD BE POSSIBLY DUE TO HYPERCAPNIA VERSUS A RESPIRATORY ACIDOSIS. ADDITIONALLY, THE PATIENT HAS HAD GASTRIC BYPASS AND I AM UNCERTAIN OF WHAT HER B12 LEVEL IS. AMMONIA APPEARS UNREMARKABLE. FORTUNATELY, HER TSH IS 1. 2. HYPERKALEMIA. Management as per nephrology. 3. END-STAGE RENAL DISEASE WITH PERITONEAL DIALYSIS. The patient has had multiple exchanges since admission. Once again, do appreciate nephrology input on this. Will follow. 4. ANEMIA OF CHRONIC DISEASE. THE PATIENT HAS, IT LOOKS LIKE, SOMEWHAT OF A DIP IN HEMOGLOBIN. Currently awaiting iron studies. Most likely will type and cross and transfuse. 5. A GAP ACIDOSIS. FEEL THAT THE PATIENT IS PROBABLY UREMIC. The patient will be aggressively dialyzed, peritoneal, and will await to determine if the patient may need hemodialysis if there is significant improvement. 6. RESPIRATORY ACIDOSIS; MOST LIKELY DUE TO UNDERLYING HYPOVENTILATION SYNDROME. The patient may require intubation. 7. DIARRHEA. STOOL STUDIES THUS FAR HAVE BEEN UNREMARKABLE. 8. ACUTE HYPOXEMIC AND HYPERCAPNIC RESPIRATORY FAILURE. PATIENT IS CURRENTLY ON BIPAP. Will repeat blood gas and follow. 9. HYPOCALCEMIA; CURRENTLY AWAITING REPEAT ALBUMIN. The patient has been given 2 g of IV calcium. 10. MORBID OBESITY WITH A BMI OF 83. This is unfortunate. The patient is a bilateral AKA as well. DISPOSITION: The patient is a FULL CODE. Will transfer the patient to ICU as her condition appears quite poor. Will repeat blood gasses and further determination from there. Time spent on this critical care visit including assessment, plan, physical examination, patient education, review of records, and specialty collaboration is 45 minutes. DICTATING PHYSICIAN: DEMARIO LEROY NP [id number] PHY#: [id number] ID: [id number] JOB#: [id number] ACCT: [id number] cc: > MTDD
[2017-02-27 14:58] LABS: ARTERIAL BLOOD BASE EXCESS -8.5 mmol/L; ARTERIAL BLOOD H2CO3 1.51 mmol/L (1.05-1.35); ARTERIAL BLOOD HCO3 19.3 mmol/L (20-26); ARTERIAL BLOOD O2 SATURATION 74.4 % (94-98); ARTERIAL BLOOD PCO2 50.2 mmHg (35-45); ARTERIAL BLOOD PO2 47.9 mmHg (80-100); ARTERIAL BLOOD TOTAL CO2 20.9 mmol/L (21-25)
[2017-02-27 14:59] LABS: ARTERIAL BLOOD FIO2 4L
[2017-02-27] MEDS ORDERED: CALCIUM GLUCONATE 1,000 MG in DEXTROSE 5%-WATER 50 ML IV ONE (15:05)
[2017-02-27] MEDS ORDERED: PROPOFOL 100 ML IV ONE ×2 (15:16→16:49)
[2017-02-27] MEDS ORDERED: PROMETHAZINE HCL 25 MG TABLET NG PRN (15:30)
[2017-02-27] MEDS ORDERED: ACETAMINOPHEN 325 MG TABLET NG PRN (15:30)
[2017-02-27] MEDS ORDERED: PROPOFOL INJ 200 MG/20 ML VIAL IV ONE (15:37)
--- NOTE | 2017-02-27 16:31 | RADIOLOGY REPORT (SQ) ---
EXAM DESCRIPTION: CHEST SINGLE VIEW COMPLETED DATE/TIME: 02/27/2017 4:13 pm REASON FOR STUDY: intubation COMPARISON: 02/26/2017 EXAM PARAMETERS: NUMBER OF VIEWS: One view. TECHNIQUE: Single frontal radiographic view of the chest acquired. RADIATION DOSE: NA LIMITATIONS: None. FINDINGS: LUNGS AND PLEURA: Pulmonary vascular congestion. Cannot exclude mild pulmonary edema. MEDIASTINUM AND HILAR STRUCTURES: No masses. Contour normal. HEART AND VASCULAR STRUCTURES: Cardiomegaly. BONES: No acute findings. HARDWARE: An endotracheal tube has its tip 3 cm above the presley. NG tube extends below the diaphrag m. OTHER: No other significant finding. IMPRESSION: Cardiomegaly. Cannot exclude mild pulmonary edema. Tube placement as described. TECHNICAL DOCUMENTATION: JOB ID: [id number] [employer]- All Rights Reserved
--- NOTE | 2017-02-27 17:19 | TRANSFER SUMMARY E ---
Transfer Summary NAME: NAA WALKER : 1970 AGE: 46Y ADMITTED: 02/26/2017 TRANSFERRED: 02/27/2017 CODE STATUS: FULL CODE. RECEIVING FACILITY: [facility] in [place]; accepted to the Compensation Analyst's Service. OUTPATIENT MOBILE ARCHITECT: Tra Lopez MD CONSULTING MOBILE ARCHITECT: Saumya Braga MD TRANSFER DIAGNOSES: Includes: 1. A RESPIRATORY ACIDOSIS WITH HYPERCAPNIC AND HYPOXEMIC RESPIRATORY FAILURE, WELL HYPOVENTILATION SYNDROME. 2. METABOLIC ACIDOSIS. 3. END-STAGE RENAL DISEASE WITH PERITONEAL DIALYSIS WELL A FISTULA; UNCERTAIN OF MATURITY. 4. PERSISTENT HYPERCALCEMIA, STATUS POST REPLETION OF 3 GRAMS. 5. ANEMIA OF CHRONIC DISEASE. 6. MORBID OBESITY WITH A BMI OF 80. 7. METABOLIC ENCEPHALOPATHY SECONDARY TO ALL OF THE ABOVE. 8. HYPERKALEMIA WITHOUT EVIDENCE OF EKG CHANGES. 9. GAP ACIDOSIS, WITH PROBABLE UREMIA. 10. DIARRHEA, WHICH IS LESSENED. 11. ACUTE HYPOXEMIC AND HYPERCAPNIC RESPIRATORY FAILURE. CURRENT MEDICATIONS: Include: 1. Cefepime 1 g q.48 h. 2. Phenergan 12.5 mg via OG q.4 h. p.r.n. 3. Eliquis 5 mg via OG q.12 h. 4. Norvasc 10 mg via OG daily. 5. Metoprolol 25 mg via OG daily. 6. Metoprolol 50 mg via OG at bedtime. 7. Tylenol 650 mg via OG q.4 h. p.r.n. 8. Singulair 10 mg via OG at bedtime. 9. Calcitrol 2.5 mcg via OG daily. 10. Vitamin D3 2000 units via OG daily. 11. Calcium carbonate x3 g have been supplemented today. 12. Propofol drip. DIET: Is n.p.o. for transfer. ACTIVITY: Bed rest. DIAGNOSTICS: Lab values are as follows: Hematology obtained on 02/27/2017: WBC of 8.9, hemoglobin is 7.6, hematocrit is 23.6. Platelet count is 252,000. Blood gas obtained on 02/27/2017; this is prior to intubation at 1450 hours: The pH is 7.20, PCO is 50, PO2 is 47. Bicarb 19. Total CO2 is 20. Oxygen saturation is 74. Chemistry obtained on 02/27/2017: Sodium is 138, potassium 5.8, chloride is 103, carbon dioxide 18, BUN 72, creatinine is 17. Glucose 110, calcium is 6.4, albumin 3.3, ionized calcium is 0.84, phosphorus 10.7, magnesium is 2.0, ferritin is 446, total bilirubin 0.4. AST 12, ALT is 29, alk phos 91, ammonia 12, total protein 5.8, albumin is 2.8, B12 is 985. TSH is 1.02. Urinalysis obtained on 02/26/2017: Color, yellow. Appearance, slightly cloudy; pH is 5.0; specific gravity is 1.013; protein 100; glucose 50; ketones negative; occult blood moderate; nitrite negative; bilirubin negative; urobilinogen is negative; leukocyte esterase is negative; WBCs 4; RBCs 18; bacteria trace; epithelial squamous cells less than 1. Mucous rare. Ascorbic acid is negative. Other body source obtained on 02/26/2017: Peritoneal fluid is yellow; appearance slightly hazy; viscosity liquid. WBCs 24, RBCs 24, seg neutrophils 15, lymphocytes 62, monocytes 23, eosinophils 0, basophils 0. Microbiology: Urine culture obtained on 02/26/2017 is pending. A gram stain from peritoneal fluid obtained on 02/26/2017 reveals no growth. Chest x-ray obtained on 02/26/2017 reveals an enlarged heart without evidence of failure. EKG obtained on 02/26/2017 reveals sinus rhythm. PHYSICAL EXAMINATION: GENERAL: On examination, the patient is a chronically ill-appearing 46-year-old female who will awaken. She is alert to place, is able to answer questions, but does drift back to sleep. She did not appear to be in distress. At this time, she is intubated. VITAL SIGNS: As follows: Temperature is 98.2, pulse 71, respirations 18, blood pressure 156/73. Oxygen saturation is 96% on 40% FIO2. SKIN: Warm and dry. No rashes. Not diaphoretic. HEENT: Pupils are reactive. The patient does have bilateral periorbital edema. NECK: The patient does have JVP to the right clavicle. CARDIOVASCULAR: Heart is regular. There is no rub. CHEST: Diminished, symmetrical, unlabored. ABDOMEN: Obese, soft. No area of focal tenderness. EXTREMITIES: The patient is a bilateral AKA. PSYCHIATRIC: The patient is groggy and is now sedated. HISTORY OF PRESENT ILLNESS: The patient is a 46-year-old female with a past medical history of end-stage renal disease on peritoneal dialysis. The patient has only been able to sporadically give history, therefore history has been taken by family, the patient and her current medical record. There are no records for me to review at this time. The patient is a 46-year-old female with peripheral vascular disease status post AKA. The patient presented to the emergency department with a chief complaint of weakness and difficulty to arouse. The patient's primary manager medicare marketing is her sister who lives here in [place]. According to the sister, she took the patient to the emergency room in [place] on Saturday due to increased sleepiness and weakness but they were unable to find anything wrong with her at that time. The patient apparently had been increasingly somnolent since that time and has really not improved in her symptoms. Denies any recent change in medications. The patient was given Narcan in the emergency department. The sister did note some loose stools throughout the week and that the PD fluid had possibly been cloudy. EMS did not note any fever. Additionally, it appears that the patient was going to be transferred from PD to hemodialysis. The patient has had a fistula placed, but unsure of the maturity of this by either democrat that was providing history. Regardless, the patient is having increasing edema and estimates a potential 40 to 60 pound weight gain in the past month and the patient was referred to the hospitalist for admission and management. HOSPITAL COURSE: The patient was admitted to [facility]. The patient's ABG did reveal persistent respiratory acidosis; however, the patient's PO2 was found to be 93, pH of 7.18, with a PCO2 of 51. The patient was placed on BiPAP and the patient's mentation did improve during the day. The patient was able to recall going to the emergency room and was able to tell me that her waste management recycling technician was Dr. Lopez. Patient was uncertain of the maturity level of her graft. The patient was seen by Dr. Braga of nephrology here who made changes to her PD fluid and increased the amount of exchanges as well. Advice was that if the patient did not have improvement of symptoms, to proceed with hemodialysis; however, hemodialysis will not be offered in this facility tomorrow. Regardless, the patient's acidosis did not improve in spite of those measures and the patient's last ABG revealed a pH of 7.20, PCO2 of 50, a PO2 of 47, and a bicarb of 19, and the patient was transferred to the ICU and has been intubated. The chest x-ray and ABG from this intubation are pending at the time of this dictation. The patient was noted to be hypokalemic at 5.8 The patient's dialysate was changed and her potassium still remains at 5.8. The patient has had no peak T-waves with this and the last chemistry was obtained at noon. Additionally, other causes of electrolyte anomalies include hypokalemia. The patient's presenting calcium was found to be 5.4 and at this time, it is 6.4 after 2 g of calcium gluconate and another g is running. The patient's albumin was noted to be 2.8 and followup of 3.3, so these did correct; however, calcium was still quite low. The patient's magnesium was in acceptable range at 2 and phosphorous was, of course, elevated at 10.7. The patient does have of course anemia of chronic disease. Partial iron studies have been obtained. Revealed a ferritin of 446 and a B12 of 985. Other studies are pending. Diarrhea. The patient and family had reported diarrhea. The patient did have a bowel movement while here. During that, it was too liquidy to obtain a full assessment for specimen and stool cultures have still not been completed. It is to be noted though, the patient's white count has improved to 8.9, where presenting white count was 11.4 and the patient has had no documented fevers during her stay. The patient's stool was not particularly foul. The patient's mental status has improved during the day. The patient's ammonia, B12 are unremarkable and the patient's hypercapnia has improved but mental status has not much improved although the patient was, at one point, completely obtunded and now she is able to answer simple questions prior to intubation. We have ordered a stat head CT as well. The patient is on Eliquis; however, it is uncertain of exactly why as at this time unable to obtain that history. I can say that the patient has had no episodes of atrial fibrillation or flutter during her stay. TRANSFER PLANNING: The patient will be received to the Compensation Analyst Service at [facility]. Time spent on this transfer including assessment, plan, physical examination, patient education, and specialty collaboration is 45 minutes. DICTATING PHYSICIAN: DEMARIO LEROY NP [id number] PHY#: [id number] ID: [id number] JOB#: [id number] ACCT: [id number] cc:DEMARIO LEROY NP >
[2017-02-27 17:32] LABS: ARTERIAL BLOOD BASE EXCESS -7.1 mmol/L; ARTERIAL BLOOD H2CO3 1.53 mmol/L (1.05-1.35); ARTERIAL BLOOD HCO3 20.4 mmol/L (20-26); ARTERIAL BLOOD O2 SATURATION 96.2 % (94-98); ARTERIAL BLOOD PCO2 50.9 mmHg (35-45); ARTERIAL BLOOD PH 7.22 (7.35-7.45); ARTERIAL BLOOD TOTAL CO2 21.9 mmol/L (21-25)
[2017-02-27 17:35] LABS: ARTERIAL BLOOD FIO2 40%
[2017-02-27] MEDS: PROPOFOL 100 ML IV PRN ×5 (18:03→21:42)
[2017-02-27 20:14] LABS: ARTERIAL BLOOD FIO2 40%; ARTERIAL BLOOD H2CO3 1.19 mmol/L (1.05-1.35); ARTERIAL BLOOD HCO3 18.9 mmol/L (20-26); ARTERIAL BLOOD O2 SATURATION 97.7 % (94-98); ARTERIAL BLOOD PCO2 39.4 mmHg (35-45); ARTERIAL BLOOD PO2 113.2 mmHg (80-100); ARTERIAL BLOOD TOTAL CO2 20.1 mmol/L (21-25)
[2017-02-27 21:40] VITALS: BP 182/78
[2017-02-27] MEDS ORDERED: APIXABAN 5 MG TABLET NG SCH (22:00)
[2017-02-27] MEDS ORDERED: MONTELUKAST SODIUM 10 MG TABLET NG SCH (22:00)
[2017-02-27] MEDS ORDERED: METOPROLOL SUCCINATE 50 MG TAB.SR.24H PO SCH (22:00)
[2017-02-28] MEDS ORDERED: METOPROLOL SUCCINATE 25 MG TAB.SR.24H PO SCH (10:00)
[2017-02-28] MEDS ORDERED: LOSARTAN POTASSIUM 50 MG TABLET PO SCH (10:00)
[2017-02-28] MEDS ORDERED: CALCITRIOL 0.25 MCG CAPSULE PO SCH (10:00)
[2017-02-28] MEDS ORDERED: FLUTICASONE NASAL SPRAY 50 MCG/SPRY 120 SPRAY/16 GM NAREB SCH (10:00)
[2017-02-28] MEDS ORDERED: AMLODIPINE BESYLATE 10 MG TABLET NG SCH (10:00)
[2017-02-28] MEDS ORDERED: CHOLECALCIFEROL (D3) 1,000 UNIT TABLET PO SCH (10:00)
--- NOTE | 2017-02-28 12:16 | PDOC CONSULTATION ---
Consultation Consult Date: 02/27/17 Attending physician:: JOHNNIE AVITIA Consult reason:: Respiratory failure History of Present Illness Admission Date/PCP: 02/26/17 20:42 ALEM UGARTE DO History of Present Illness: NAA WALKER is a 46 year old morbidly obese female Presented to the ED with increasing lethargy and was subsequently placed on BiPAP long history of end-stage renal disease with home peritoneal dialysis hypertension peripheral vascular disease and diabetes all information from chart patient currently intubated and sedated Past Medical History Cardiac Medical History: Reports: Hypertension Pulmonary Medical History: Reports: Respiratory Failure EENT Medical History: Denies: Ears, Nose, Throat Neurological Medical History: Denies: Multiple Sclerosis, Seizures Endocrine Medical History: Reports: Diabetes Mellitus Type 2, Obesity Renal/ Medical History: Reports: End Stage Renal Disease Malignancy Medical History: Reports: None GI Medical History: Reports: Crohn's Disease, Ulcerative Colitis Denies: Cirrhosis Musculoskeltal Medical History: Denies: Gout Skin Medical History: Denies: Eczema, Psoriasis Psychiatric Medical History: Reports: General Anxiety Disorder Traumatic Medical History: Denies: Traumatic Brain Injury Hematology: Denies: Sickle Cell Disease, Bleeding Tendencies Infectious Medical History: Denies: Hepatitis B, Hepatitis C Past Surgical History Past Surgical History: Reports: Amputation - Bilateral BKA, Gastric Bypass Surgery, Orthopedic Surgery - left BKA 2003, right BKA 2004, Other - abdominoplasty Social History Information Source: [facility] Records Lives with: Alone Smoking Status: Never Smoker Frequency of Alcohol Use: None Hx Recreational Drug Use: No Hx Prescription Drug Abuse: No Do you have pets?: No Have you had any respiratory illnesses as a child?: No Have you been exposed to any sick contacts recently?: No Have you had any recent respiratory illnesses?: No Have you travelled outside of [place] in the past 12 months?: No - Advance Directive Resuscitation Status: Full Code Family History Family History: DM, Hypertension Parental Family History Reviewed: No Children Family History Reviewed: No Sibling(s) Family History Reviewed.: No Medication/Allergy Home Medications: Apixaban [Eliquis 5 mg Tablet] 5 mg PO Q12 02/27/17 Calcitriol [Rocaltrol 0.25 Mcg Capsule] 0.25 mcg PO DAILY 02/27/17 Cholecalciferol (Vitamin D3) [Vitamin D3 1000 Unit Tablet] 2,000 unit PO DAILY 02/27/17 Fluticasone Propionate [Flonase Nasal Kinsey 50 Mcg/Kinsey 16 gm] 1 spray NAREB DAILY 02/27/17 Furosemide [Lasix 80 mg Tablet] 200 mg PO BID 02/27/17 Hydrocodone/Acetaminophen [Hydrocodon-Acetaminophn 10-325] 1 tab PO Q8HP PRN Liraglutide [Victoza 2-Fabio] 1.8 mg SQ DAILY 02/27/17 Losartan Potassium [Cozaar 100 mg Tablet] 100 mg PO DAILY 02/27/17 Metolazone [Zaroxolyn] 10 mg PO QAM MDD BEFORE LASIX (30MINS) 02/27/17 Metoprolol Succinate [Toprol Xl 25 mg Tab.sr] 25 mg PO DAILY 02/27/17 Metoprolol Succinate [Toprol Xl 50 mg Tab.sr] 50 mg PO QHS 02/27/17 Montelukast Sodium [Singulair 10 mg Tablet] 10 mg PO QHS 02/27/17 Nifedipine [Nifedipine ER] 30 mg PO DAILY 02/27/17 Olopatadine HCl [Pataday] 1 drop OU DAILYP PRN 02/27/17 Oxycodone HCl [Oxy-Ir 5 mg Tablet] 30 mg PO Q8 02/27/17 Sucroferric Oxyhydroxide [Velphoro] 1,500 mg PO MEALS 02/27/17 Allergies/Adverse Reactions: Penicillins Allergy (Verified 02/26/17 13:53) Review of Systems ROS unobtainable: Due to endotracheal tube, Due to mental status Physical Exam Vital Signs: Temp Pulse Resp BP Pulse Ox 98.2 F 71 16 156/73 H 100 02/27/17 07:41 02/27/17 09:15 02/27/17 14:34 02/27/17 09:15 02/27/17 15:27 Intake & Output 02/26/17 02/27/17 02/28/17 06:59 06:59 06:59 Intake Total 7500 2500 Output Total 1300 3200 Balance 6200 -700 Weight 220.7 kg 220.7 kg General appearance: PRESENT: no acute distress, disheveled, well-developed. ABSENT: cooperative, mild distress, morbidly obese, obese, severe distress, thin Head exam: PRESENT: atraumatic, normocephalic Eye exam: PRESENT: conjunctiva pale, EOMI. ABSENT: conjunctival injection, conjunctiva pink, nystagmus, periorbital swelling, scleral icterus Mouth exam: PRESENT: dry mucosa, neck supple, tongue midline. ABSENT: laceration, moist Neck exam: ABSENT: carotid bruit, JVD, lymphadenopathy, thyromegaly, tracheal deviation, tracheostomy Respiratory exam: PRESENT: crackles, decreased breath sounds, prolonged expiratory phas, rhonchi, stridor, symmetrical, unlabored, wheezes. ABSENT: accessory muscle use, chest wall tenderness, clear to auscultation senthil, rales, retraction, tachypnea Cardiovascular exam: PRESENT: RRR, +S1, +S2. ABSENT: irregular rhythm, rubs Pulses: ABSENT: normal radial pulses GI/Abdominal exam: PRESENT: normal bowel sounds, soft. ABSENT: distended, guarding, mass, organolmegaly, rebound, tenderness Extremities exam: ABSENT: calf tenderness, clubbing, joint swelling Musculoskeletal exam: ABSENT: ambulatory, deformity, dislocation Skin exam: PRESENT: dry, warm Results Laboratory Results: 02/27/17 04:46 02/27/17 11:20 02/26/17 02/26/17 02/26/17 21:15 21:31 22:35 WBC RBC Hgb Hct MCV MCH MCHC RDW Plt Count Seg Neutrophils % Lymphocytes % Monocytes % Eosinophils % Basophils % Absolute Neutrophils Absolute Lymphocytes Absolute Monocytes Absolute Eosinophils Absolute Basophils Carbonic Acid 1.53 H 1.48 H HCO3/H2CO3 Ratio 12:1 12:1 ABG pH 7.19 L* 7.18 L* ABG pCO2 50.8 H 49.1 H ABG pO2 51.9 L 221.9 H ABG HCO3 18.9 L 17.9 L ABG O2 Saturation 77.9 L 99.2 H ABG Base Excess -8.9 -10.2 FiO2 50% 50% Sodium Potassium Chloride Carbon Dioxide Anion Gap BUN Creatinine Est GFR ( Amer) Est GFR (Non-Af Amer) Glucose Calcium Ionized Calcium [place] Phosphorus Magnesium Ferritin Total Bilirubin AST ALT Alkaline Phosphatase Ammonia Total Protein Albumin Lipase Vitamin B12 Fluid Type PERITONEAL Fluid Source ABDOMEN Fluid Color YELLOW Fluid Appearance SLIGHTLY HAZY Fluid Viscosity LIQUID Fluid WBC 24 Fluid RBC 24 Blood Type Antibody Screen 02/27/17 02/27/17 02/27/17 03:22 04:46 04:46 WBC 8.9 RBC 2.56 L Hgb 7.6 L Hct 23.6 L MCV 92 MCH 29.7 MCHC 32.3 RDW 14.3 H Plt Count 252 Seg Neutrophils % 76.4 Lymphocytes % 11.7 L Monocytes % 9.2 Eosinophils % 2.0 Basophils % 0.7 Absolute Neutrophils 6.8 Absolute Lymphocytes 1.0 Absolute Monocytes 0.8 Absolute Eosinophils 0.2 Absolute Basophils 0.1 Carbonic Acid 1.52 H HCO3/H2CO3 Ratio 13:1 ABG pH 7.22 L ABG pCO2 50.4 H ABG pO2 139.5 H ABG HCO3 20.0 ABG O2 Saturation 98.2 H ABG Base Excess -7.5 FiO2 35% Sodium 139.9 Potassium 5.8 H Chloride 105 Carbon Dioxide 18 L Anion Gap 17 BUN 72 H Creatinine 17.21 H Est GFR ( Amer) 3 L Est GFR (Non-Af Amer) 2 L Glucose 108 Calcium 5.8 L* Ionized Calcium [place] Phosphorus 10.7 H Magnesium 2.0 Ferritin Total Bilirubin 0.4 AST 12 L ALT 29 Alkaline Phosphatase 91 Ammonia Total Protein 5.8 L Albumin 2.8 L Lipase Vitamin B12 Fluid Type Fluid Source Fluid Color Fluid Appearance Fluid Viscosity Fluid WBC Fluid RBC Blood Type Antibody Screen 02/27/17 02/27/17 02/27/17 05:41 06:41 06:47 WBC RBC Hgb Hct MCV MCH MCHC RDW Plt Count Seg Neutrophils % Lymphocytes % Monocytes % Eosinophils % Basophils % Absolute Neutrophils Absolute Lymphocytes Absolute Monocytes Absolute Eosinophils Absolute Basophils Carbonic Acid 1.63 H HCO3/H2CO3 Ratio 12:1 ABG pH 7.18 L* ABG pCO2 54.3 H ABG pO2 77.7 L ABG HCO3 19.9 L ABG O2 Saturation 92.0 L ABG Base Excess -8.4 FiO2 24% Sodium Potassium Chloride Carbon Dioxide Anion Gap BUN Creatinine Est GFR ( Amer) Est GFR (Non-Af Amer) Glucose Calcium Ionized Calcium [place] 0.81 L Phosphorus Magnesium Ferritin Total Bilirubin AST ALT Alkaline Phosphatase Ammonia Total Protein Albumin Lipase Vitamin B12 Fluid Type Fluid Source Fluid Color Fluid Appearance Fluid Viscosity Fluid WBC Fluid RBC Blood Type B POSITIVE Antibody Screen NEGATIVE 02/27/17 02/27/17 02/27/17 11:20 11:20 11:20 WBC RBC Hgb Hct MCV MCH MCHC RDW Plt Count Seg Neutrophils % Lymphocytes % Monocytes % Eosinophils % Basophils % Absolute Neutrophils Absolute Lymphocytes Absolute Monocytes Absolute Eosinophils Absolute Basophils Carbonic Acid HCO3/H2CO3 Ratio ABG pH ABG pCO2 ABG pO2 ABG HCO3 ABG O2 Saturation ABG Base Excess FiO2 Sodium 138.6 Potassium 5.8 H Chloride 103 Carbon Dioxide 18 L Anion Gap 18 BUN 72 H Creatinine 16.88 H Est GFR ( Amer) 3 L Est GFR (Non-Af Amer) 2 L Glucose 110 Calcium 6.4 L* Ionized Calcium [place] 0.84 L Phosphorus Magnesium Ferritin Total Bilirubin AST ALT Alkaline Phosphatase Ammonia 12.5 Total Protein Albumin Lipase Vitamin B12 Fluid Type Fluid Source Fluid Color Fluid Appearance Fluid Viscosity Fluid WBC Fluid RBC Blood Type Antibody Screen 02/27/17 02/27/17 02/27/17 11:20 11:20 14:50 WBC RBC Hgb Hct MCV MCH MCHC RDW Plt Count Seg Neutrophils % Lymphocytes % Monocytes % Eosinophils % Basophils % Absolute Neutrophils Absolute Lymphocytes Absolute Monocytes Absolute Eosinophils Absolute Basophils Carbonic Acid 1.51 H HCO3/H2CO3 Ratio 12:1 ABG pH 7.20 L* ABG pCO2 50.2 H ABG pO2 47.9 L ABG HCO3 19.3 L ABG O2 Saturation 74.4 L ABG Base Excess -8.5 FiO2 4L Sodium Potassium Chloride Carbon Dioxide Anion Gap BUN Creatinine Est GFR ( Amer) Est GFR (Non-Af Amer) Glucose Calcium Ionized Calcium [place] Phosphorus Magnesium Ferritin 446.00 H Total Bilirubin AST ALT Alkaline Phosphatase Ammonia Total Protein Albumin 3.3 L Lipase 160.6 Vitamin B12 985.0 H Fluid Type Fluid Source Fluid Color Fluid Appearance Fluid Viscosity Fluid WBC Fluid RBC Blood Type Antibody Screen 02/27/17 17:21 WBC RBC Hgb Hct MCV MCH MCHC RDW Plt Count Seg Neutrophils % Lymphocytes % Monocytes % Eosinophils % Basophils % Absolute Neutrophils Absolute Lymphocytes Absolute Monocytes Absolute Eosinophils Absolute Basophils Carbonic Acid 1.53 H HCO3/H2CO3 Ratio 13:1 ABG pH 7.22 L ABG pCO2 50.9 H ABG pO2 99.0 ABG HCO3 20.4 ABG O2 Saturation 96.2 ABG Base Excess -7.1 FiO2 40% Sodium Potassium Chloride Carbon Dioxide Anion Gap BUN Creatinine Est GFR ( Amer) Est GFR (Non-Af Amer) Glucose Calcium Ionized Calcium [place] Phosphorus Magnesium Ferritin Total Bilirubin AST ALT Alkaline Phosphatase Ammonia Total Protein Albumin Lipase Vitamin B12 Fluid Type Fluid Source Fluid Color Fluid Appearance Fluid Viscosity Fluid WBC Fluid RBC Blood Type Antibody Screen Impressions: Chest X-Ray 02/27/17 00:00 IMPRESSION: Cardiomegaly. Cannot exclude mild pulmonary edema. Tube placement as described. Assessment & Plan - Diagnosis (1) Acute respiratory failure Qualifiers: Respiratory failure complication: hypoxia and hypercapnia Qualified Code(s) : J96.01 - Acute respiratory failure with hypoxia; J96.02 - Acute respiratory failure with hypercapnia; J96.02 - Acute respiratory failure with hypercapnia; J96.02 - Acute respiratory failure with hypercapnia Is this a current diagnosis for this admission?: Yes Plan: Continue mechanical ventilation ventilatory support and oxygenation (2) End stage renal disease on dialysis Is this a current diagnosis for this admission?: Yes Plan: Peritoneal dialysate may be infected (3) Morbid obesity with BMI of 50.0-59.9, adult Is this a current diagnosis for this admission?: Yes (4) Obesity hypoventilation syndrome Is this a current diagnosis for this admission?: Yes Plan: May well need BiPAP and/or trilogy long-term - Time Total Critical Time (Minutes): 55 - Plan Summary Plan Summary: PCP planning transfer [facility]
== END 2017-02-27 20:10 | disposition short-term general hospital (02) | DRG 208 ==
LOC: ER 13:13 → EH 20:42 → 3W 02-27 00:24 → ICU 02-27 14:21
PROVIDERS: ADMIT Family Medicine; ATTEND Family Medicine
PROC: 5A09357 Assistance with Respiratory Ventilation, Less than 24 Consecutive Hours, Continuous Positive Airway Pressure (ICD-10-PCS; 2017-02-26)
PROC: 5A1935Z Respiratory Ventilation, Less than 24 Consecutive Hours (ICD-10-PCS; principal; 2017-02-27)
PROC: 0BH17EZ Insertion of Endotracheal Airway into Trachea, Via Natural or Artificial Opening (ICD-10-PCS; 2017-02-27)
DX: J96.21 Acute and chronic respiratory failure with hypoxia (principal); N18.6 End stage renal disease; G93.41 Metabolic encephalopathy; K65.9 Peritonitis, unspecified; E66.2 Morbid (severe) obesity with alveolar hypoventilation; Z68.45 Body mass index [BMI] 70 or greater, adult; E87.4 Mixed disorder of acid-base balance; E87.2 Acidosis; K50.90 Crohn's disease, unspecified, without complications; I12.0 Hypertensive chronic kidney disease with stage 5 chronic kidney disease or end stage renal disease; N25.81 Secondary hyperparathyroidism of renal origin; T85.71XA Infection and inflammatory reaction due to peritoneal dialysis catheter, initial encounter; J96.22 Acute and chronic respiratory failure with hypercapnia; N28.89 Other specified disorders of kidney and ureter; E83.52 Hypercalcemia; D63.1 Anemia in chronic kidney disease; R19.7 Diarrhea, unspecified; E87.6 Hypokalemia; E11.51 Type 2 diabetes mellitus with diabetic peripheral angiopathy without gangrene; E11.22 Type 2 diabetes mellitus with diabetic chronic kidney disease; F41.1 Generalized anxiety disorder; I44.4 Left anterior fascicular block; E87.5 Hyperkalemia; E83.51 Hypocalcemia; N25.0 Renal osteodystrophy; Z60.2 Problems related to living alone; Z79.899 Other long term (current) drug therapy; Z99.2 Dependence on renal dialysis; Z89.512 Acquired absence of left leg below knee; Z89.511 Acquired absence of right leg below knee; Z98.84 Bariatric surgery status; Z88.0 Allergy status to penicillin; Z83.3 Family history of diabetes mellitus; Z82.49 Family history of ischemic heart disease and other diseases of the circulatory system
CPT/HCPCS: 31500; 36415; 36600; 51701; 71010; 80048; 80053; 81001; 82040; 82140; 82330; 82607; 82728; 82803; 82962; 83690; 83735; 84100; 84443; 85025; 86850; 86900; 86901; 87070; 87075; 87086; 87205; 89050; 90945; 93005; 93010; 94002; 94660; 96365; 96375; 99291; J0330; J0610; J1580; J1644; J2704; J3370; J3490

== ENCOUNTER → 2018-02-12 | Outpatient (CLI) | payer MEDICARE, MEDICAID ==
[2018-02-12 11:51] LABS: RBCS (WET MOUNT) 2+ RBCS SEEN; T.VAGINALIS (WET MOUNT) TRICHOMONAS SEEN; WBCS (WET MOUNT) 4+ WBCS SEEN; YEAST (WET MOUNT) NO YEAST SEEN
[2018-02-12 11:52] LABS: BACTERIA (WET MOUNT) 4+ BACTERIA SEEN; EPITHELIALS (WET MOUNT) 3+ EPITHELIALS SEEN
== END ==
LOC: LAB 11:43
PROVIDERS: ATTEND Nurse Practitioner Family
DX: N89.8 Other specified noninflammatory disorders of vagina (principal)
CPT/HCPCS: 87210